=== PATIENT | female | born 1975 | race Caucasian/White ===

== ENCOUNTER 2017-04-28 19:05 | Emergency (ER) | payer OTHER ==
[~2017-04-28] VITALS: Ht 160 cm; Wt 65.8 kg
[~2017-04-28 19:05] MED LIST: CRESTOR5 MG PO; FLOMAX 0.4MG C0.4 MG PO; JOLESSA 30 MCG-1 TAB PO; LISINOPRIL-HYDR1 TA2 PO; LORTAB 5/500 501 TAB PO; PREDNISONE20 MG PO; SEASONIQUE1 TAB PO; SPIRONOLACTONE25 MG NG; XOPENEX HF0.045 MG/A IH; ZOFRAN4 MG PO; ZYRTEC 10MG TAB10 MG PO
--- OUTSIDE RECORDS SUMMARY | 2017-04-28 19:12 | External Medical Summary Rpt | CCD ---
Author Author , ASHLEE ROSADO Address Unknown Phone [email or web address] Providers Care Commercial Specialist Name Role Phone Ahsan Bravo MD, Unavailable Unavailable Ahsan Bravo MD Purpose Continuity of Care Document - 08-23-2012 through 2016 Problems Code Diagnosis DOS Provider Status [id number] Flank pain [facility] 288.8 Leukocytosi [facility] [id number] Kidney [facility] Allergies, Adverse Reactions, Alerts Type Drug Allergy Adverse Reaction to Substance Substance Reaction Severity Erythromycin I-RASH Intermediate Amoxicillin I-RASH Intermediate Metaxalone I-RASH Intermediate Clavulanic Acid I-RASH Intermediate Medications Na ND Rx Da Fi Fi Am Da Di Ph RX Ph St me C No te ll ll ou ys ag ar # ys at rm s nt no ma ic us Or Da si cy ia de te s n re d IP 00 03 0 No RA 48 -1 T- 70 0- Lo AL 20 20 ng BU 10 13 er T 1 0. Ac 5- ti 3( ve 2. 5) MG /3 ML Vital Signs 08-23-2012 14:52 Name Value Interpretat Reference Comment ion Range Body 98.2 [degF] Temperature BP 71 mm[Hg] Diastolic BP Systolic 129 mm[Hg] Heart 87 /min Rate/Pulse O2% 100 % Respiratory 16 /min Rate 08-23-2012 13:18 Name Value Interpretat Reference Comment ion Range BP 98 mm[Hg] Diastolic BP Systolic 141 mm[Hg] Heart 100 /min Rate/Pulse Respiratory 20 /min Rate 08-23-2012 12:21 Name Value Interpretat Reference Comment ion Range O2% 100 % Results Labs Lab Lab Date Result Refere Interp Status Commen Order Detail nces retati t Range on COMPREHENSIVE METABOLIC PANEL (08-23-2012 13:46) Glucose 98 74-106 complet 013 mg/dL ed Bld-mCn 13:46 c BUN 16 7-18 complet Bld-mCn 013 mg/dL ed c 13:46 Creat 1.0 0.6-1.0 complet SerPl-m 013 mg/dL ed Cnc 13:46 ESTIMAT 73 50-200 complet ED 013 ML/MIN ed CREATIN 13:46 INE CLEARAN CE GFR 62 59- complet (ESTIMA 013 ML/MIN ed DONN) 13:46 Sodium 140 136-145 complet SerPl-s 013 mmoL/L ed Cnc 13:46 Potassi 3.7 3.5-5.1 complet um 013 mmoL/L ed SerPl-s 13:46 Cnc Chlorid 104 98-107 complet e 013 mmoL/L ed SerPl-s 13:46 Cnc CO2 26 21.0-32 complet SerPl-s 013 mmoL/L .0 ed Cnc 13:46 Calcium 9.4 8.5-10. complet 013 mg/dL 1 ed SerPl-m 13:46 Cnc Prot 7.7 6.4-8.2 complet SerPl-m 013 gm/dL ed Cnc 13:46 Albumin 3.9 3.4-5.0 complet 013 gm/dL ed SerPl-m 13:46 Cnc Globuli 3.8 1.3-3.2 complet n 013 gm/dL ed Ser-mCn 13:46 c Albumin 1.0 UNK 1.1-1.8 complet /Glob 013 ed SerPl-m 13:46 Rto Bilirub 0.4 0.2-1.0 complet 013 mg/dL ed SerPl-m 13:46 Cnc AST 21 U/L 15-37 complet SerPl-c 013 ed Cnc 13:46 ALT 34 U/L 30-65 complet SerPl-c 013 ed Cnc 13:46 ALP 63 U/L 50-136 complet SerPl-c 013 ed Cnc 13:46 D Dimer PPP (08-23-2012 13:46) D Dimer 03-10-2 135 0-400 complet PPP 013 ng/mL ed 13:46 CBC with AUTO DIFF (08-23-2012 13:46) WBC # 03-10-2 11.6 4.8-10. complet Bld 013 K/MM3 8 ed Auto 13:46 RBC # 03-10-2 5.20 4.2-5.4 complet Bld 013 M/mm3 ed Auto 13:46 Hgb 03-10-2 15.5 12.2-16 complet Bld-mCn 013 g/dL .2 ed c 13:46 Hct Fr 03-10-2 45.0 % 37.0-47 complet Bld 013 .0 ed 13:46 MCV RBC 03-10-2 86.5 fl 82.2-97 complet 013 .8 ed 13:46 MCH RBC -10-2 29.8 pg 27-31.2 complet Qn 013 ed Auto 13:46 MEAN 03-10-2 34.5 31.8-35 complet CORPUSC 013 g/dl .4 ed ULAR 13:46 HGB CONC RDW RBC -10-2 12.8 % 11.5-17 complet Auto 013 .5 ed 13:46 Platele 03-10-2 274 142-424 complet t Bld 013 K/mm3 ed Ql 13:46 Manual MEAN -10-2 8.2 fl 7.4-10. complet PLATELE 013 4 ed T 13:46 VOLUME Granulo 03-10-2 70.7 % 37.0-80 complet cytes 013 .0 ed Fr Bld 13:46 Auto LYMPH % 03-10-2 23.7 % 10-50.0 complet 013 ed 13:46 Monocyt 03-10-2 4.5 % 1.7-9.3 complet es Fr 013 ed Bld 13:46 Auto Eosinop 03-10-2 0.8 % 0.1-12. complet hil Fr 013 0 ed Bld 13:46 Auto Basophi 03-10-2 0.4 % 0.1-2.0 complet ls Fr 013 ed Bld 13:46 Auto Granulo 03-10-2 8.2 1.8-7.8 complet cytes # 013 K/mm3 ed Bld 13:46 Auto Lymphoc 03-10-2 2.7 0.7-4.5 complet ytes Fr 013 K/mm3 ed Bld 13:46 Auto Monocyt 0.5 0.1-1.0 complet es # 013 K/mm3 ed Bld 13:46 Auto Eosinop 0.1 0.0-0.4 complet hil # 013 K/mm3 ed Bld 13:46 Auto Basophi 0.0 0-0.2 complet ls # 013 K/MM3 ed Bld 13:46 Auto Encounters Encounter Start End Date Code Location Performer Type Date Emergency MORELIA PARRA MD (ER) 3 13:09 3 14:57 [facility]
--- OUTSIDE RECORDS SUMMARY | 2017-04-28 19:12 | External Medical Summary Rpt | CCD ---
Author Author , ASHLEE ROSADO Address Unknown Phone [email or web address] Care Team Providers Care Property Management Coordinator Name Role Phone Ahsan Bravo MD, Unavailable Unavailable Ahsan Bravo MD Purpose Continuity of Care Document - 08-23-2012 through 2016 Problems Code Diagnosis DOS Provider Status [id number] Flank pain [facility] 288.8 Leukocytosi [facility] [id number] Kidney [facility] Allergies, Adverse Reactions, Alerts Type Drug Allergy [...] PARRA MD (ER) 3 13:09 3 14:57 [facility]
--- OUTSIDE RECORDS SUMMARY | 2017-04-28 19:13 | External Medical Summary Rpt | CCD ---
Author Author , JASON ROSADO Address Unknown Phone [email or web address] Immunization Name Date Rout CVX Reac Dose Comm Prov Is Faci e tion ent ider Refu lity Give sed n Hep 10-2 43 999 Hist H149 No H149 B, 1- oric adul 99 al t Info rmat ion - Sour ce Unsp ecif ied Hep 05- 43 999 Hist H149 No H149 B, 9- oric adul 99 al t Info rmat ion - Sour ce Unsp ecif ied Hep 04- 43 999 Hist H149 No H149 B, 3- oric adul 99 al t Info rmat ion - Sour ce Unsp ecif ied
--- OUTSIDE RECORDS SUMMARY | 2017-04-28 19:13 | External Medical Summary Rpt | CCD ---
Author Author , JASON ROSADO Address Unknown Phone [email or web address] Immunization Name Date Rout CVX Reac Dose [...]
--- NOTE | 2017-04-28 19:46 | Urgent Treatment Center Report ---
History of Present Issue Date/Time Seen by Provider 04/28/171942 Visit Reason Pt arrived:Walked Presenting Problem:PT C/O OF MIGRAINE FOR 2 DAYS Location if Accident: Onset of symptoms date/time:/ or onset unknown for:MEDICAL HX UNKNOWN Have you (or family members/close friends) recently traveled outside the [place]? N If Yes, where/when: Have you had exposure to infectious disease within the past month? TB? Other? Specify: Patient state that she has a history of migraine headaches State that she has had a migraine now for two day and her medication has not helped to control it State that her eyes are sensative to light and pain is on right side of head State that this migraine is simular to others she has had ALLERGIES Coded Allergies: amoxicillin (Mild, 06/27/15) erythromycin base (Mild, 06/27/15) metaxalone (From SKELAXIN) (Mild, 06/27/15) Home Medications Active Scripts Prednisone (Prednisone 20MG Tab) 20 MG PO BID #6 TAB Prov: 02/15/17 Reported Medications Spironolactone (Spironolactone) 25 MG NG BID Cetirizine Hcl (All Day Allergy) 10 MG PO DAILY LEVONORGESTREL-ETHIN ESTRADIOL (Jolessa 0.15 MG-0.03 MG Tablet) 1 TAB PO DAILY LISINOPRIL/HYDROCHLOROTHIAZIDE (Lisinopril-Hctz 20-25 MG Tab) 1 TAB PO DAILY History Medical History General CAD? No Angina: No [place]: No Hypertension? Yes Hyperlipidemia? Yes CHF? No DVT? No PE? No COPD? No Asthma? Yes Anemia? No GERD? No Gastric ulcers? No GI Bleed? No Hernia? No Thyroid Problems? No Hypothyroidism? No CVA? No Seizures? No Diabetes? No Renal Insuffiency? No UTI? No Stones? No BPH? No GB Disease: No Nephritic Syndrome? No Asplenia? No Hepatitis? No Sickle Cell Disease? No Arthritis? No Migraines? No Cataracts? No Glaucoma? No MRSA? No HIV? No TB? No Anxiety? No Depression? No Cancer? No Immunization HX DT/Tetanus UNKNOWN Flu REFUSES Pneumonia REFUSES Surgical Hx Previous Surgery?Y Tonsils ORAL SURGERY-WISDOM TEETH BACK SURGERY RN PICU Hx LMP 1 Month Ago Family History Family HX Diabetes Yes CAD No Hypertension Yes Hyperlipidemia Yes Cancer No TB No Social History Smoking Hx Smoker: Never Smoker Tobacco: No Alcohol Alcohol: No Review of Systems All Other Systems Reviewed and Negative Psychiatric/Neurological headache Physical Exam Vital Signs Vital Signs Date Time Temp Pulse Resp B/P Pulse O2 O2 Flow FiO2 Ox Delivery Rate 04/28 1954 18 04/28 1934 98.1 85 20 134/95 98 General Appearance normal appearance, WD/WN, no apparent distress Eye Exam - bilateral eye normal exam, bilateral eye PERRL, bilateral eye EOMI, bilateral eye other (sensative to light) Respiratory Status Yes: trachea midline, chest symmetrical, non tender chest. No: respiratory distress. Lung Sounds bilateral: normal breath sounds, lungs clear. Cardiovascular normal exam, regular rate/rhythm, no peripheral edema Neurologic alert, normal exam, oriented x 3 Medical Decision Making LABS/Meds/Orders Pt receiving controlled substance in ED? No Results/Orders Current Medication Orders Sig/Valentin Start time Last Medication Dose Route Stop Time Status Admin Metoclopramide HCl 0 .STK-MED ONE 04/28 1951 DC PO Diphenhydramine HCl 0 .STK-MED ONE 04/28 1949 DC .ROUTE Ketorolac 0 .STK-MED ONE 04/28 1949 DC Tromethamine .ROUTE Diphenhydramine HCl 25 MG ONCE ONE 04/28 1945 DC 04/28 IM 04/28 Ketorolac 60 MG ONCE ONE 04/28 1945 DC 04/28 Tromethamine IM 04/28 Metoclopramide HCl 10 MG ONCE ONE 04/28 1945 DC 04/28 PO 04/[address] [facility] Progress Notes Comment After medication patient states that pain is much improved state that eyes no longer sensative and pain is almost gone state that she is ready to go home and go to bed Departure Departure Time of Disposition 2018 Disposition DC Home or Self Care(routine) Clinical Impression Primary Impression: Migraine Qualifiers: Migraine type: unspecified Status migrainosus presence: without status migrainosus Intractability: intractable Qualified Code: G43.919 - Migraine, unspecified, intractable, without status migrainosus Condition STABLE Referrals Esther Martínez APRN (Family): Tomorrow-Call Office if symptoms return Patient Instructions DI for Migraine, Migraine -- Adult Additional Instructions Follow up with family doctor Return if needed Take medication as prescribed Over the counter Motrin and Tylenol as needed for pain If any changes with this migraine begans to occur, go straight to the ER Discharge Counseling Counseled pt/family regarding diagnosis, medications/RX, home care, follow up needs at 2020
[2017-04-28 20:31] VITALS: BP 132/88
[2017-04-29] MEDS ORDERED: TOPIRAMATE25 MG PO (16:50)
[2017-04-29] MEDS ORDERED: LASIX 20MG. TAB20 MG PO (20:34)
[2017-04-29] MEDS ORDERED: LEVOTHYROXIN0.025 MG PO (20:35)
== END 2017-04-28 20:33 | disposition home or self-care (01) ==
LOC: UTC 19:05
DX: G43.919 Migraine, unspecified, intractable, without status migrainosus (principal); I10 Essential (primary) hypertension; J45.909 Unspecified asthma, uncomplicated; Z88.1 Allergy status to other antibiotic agents; Z88.8 Allergy status to other drugs, medicaments and biological substances; Z91.048 Other nonmedicinal substance allergy status; Z79.3 Long term (current) use of hormonal contraceptives; Z79.899 Other long term (current) drug therapy

== ENCOUNTER 2017-04-29 16:40 | Observation (INO) | payer OTHER ==
[~2017-04-29] VITALS: Ht 160 cm; Wt 76.5 kg
[2017-04-29 16:42] VITALS: BP 139/90
[2017-04-29] MEDS ORDERED: TOPIRAMATE25 MG PO (16:50)
--- OUTSIDE RECORDS SUMMARY | 2017-04-29 16:59 | External Medical Summary Rpt | CCD ---
Author Author , ASHLEE ROSADO Address Unknown Phone [email or web address] Team Providers Care Automobiles Salesperson Name Role Phone Ahsan Bravo MD, Unavailable Unavailable Ahsan Bravo MD Purpose Continuity of Care Document - 08-23-2012 through 2016 Problems Code Diagnosis DOS Provider Status [id number] Flank pain [facility] 288.8 Leukocytosi [facility] [id number] Kidney [facility] J45.901 UNSPECIFIED ASTHMA WITH (ACUTE) EXACERBATIO N Allergies, Adverse Reactions, Alerts Type Drug Allergy [...] g/dL .2 ed c 13:46 Hct Fr -10-2 45.0 % 37.0-47 complet Bld 013 .0 ed 13:46 MCV RBC -10-2 86.5 fl 82.2-97 complet 013 .8 ed 13:46 MCH RBC -10-2 29.8 pg 27-31.2 complet Qn 013 ed Auto 13:46 MEAN 03-10-2 34.5 31.8-35 complet CORPUSC 013 g/dl .4 ed ULAR 13:46 HGB CONC RDW RBC -10-2 12.8 % 11.5-17 complet Auto 013 .5 ed 13:46 Platele -10-2 274 142-424 complet t Bld 013 K/mm3 ed Ql 13:46 Manual MEAN 10-2 8.2 fl 7.4-10. complet PLATELE 013 4 ed T 13:46 VOLUME Granulo -10-2 70.7 % 37.0-80 complet cytes 013 .0 [...] 013 K/mm3 ed Bld 13:46 Auto Monocyt 08-23-2 0.5 0.1-1.0 complet es # 013 K/mm3 ed Bld 13:46 Auto Eosinop 0.1 0.0-0.4 complet hil # 013 K/mm3 ed Bld 13:46 Auto Basophi 0.0 0-0.2 complet ls # 013 K/MM3 ed Bld 13:46 Auto Encounters Encounter Start End Date Code Location Performer Type Date Emergency MORELIA PARRA MD (ER) 3 13:09 3 14:57 [facility]
--- OUTSIDE RECORDS SUMMARY | 2017-04-29 16:59 | External Medical Summary Rpt | CCD ---
Author Author , JASON ROSADO Address Unknown Phone [email or web address] Immunization Name Date Rout CVX Reac Dose [...]
--- OUTSIDE RECORDS SUMMARY | 2017-04-29 16:59 | External Medical Summary Rpt | CCD ---
Author Author , ASHLEE ROSADO Address Unknown Phone [email or web address] Team Providers Care Systems Spec Name Role Phone Ashan Bravo MD, Unavailable Unavailable Ahsan Bravo MD Purpose Continuity of Care Document - 08-23-2012 through 2016 Problems Code Diagnosis DOS Provider Status [id number] Flank pain [facility] 288.8 Leukocytosi [facility] [id number] Kidney [facility] J45.901 UNSPECIFIED ASTHMA WITH (ACUTE) EXACERBATIO [...] PARRA MD (ER) 3 13:09 3 14:57 [facility]
--- OUTSIDE RECORDS SUMMARY | 2017-04-29 16:59 | External Medical Summary Rpt | CCD ---
Author Author , JASON ROSADO Address Unknown Phone [email or web address] Immunization Name Date Rout CVX Reac Dose [...]
[2017-04-29 17:01] LABS: HEMOGLOBIN 14.3 g/dL (12.2-16.2); LYMPH # 5.6 K/mm3 (0.7-4.5); LYMPH % 29.7 % (10-50.0)
--- NOTE | 2017-04-29 17:04 | Emergency Room Report ---
History of Present Illness Time Seen by [id number] Presenting Problem in Triage Pt arrived:Ambulance Stretcher Presenting Problem:SYNCOPE Onset of symptoms date/time:04/29/17 or onset unknown for: Treatment Prior to Arrival: ANTENNA DESIGN ENGINEER Provided by: Sepsis Risk Assessment: Temp: 98.4 B/P: 139/90 MAP: 106 Pulse: 78 Resp: 18 Recent fever? N Clinical Suspician of Infection? N Mental Status: 1 - Regular (Normal Baseline) Sepsis Risk:Low Sepsis Risk Have you (or family members/close friends) recently traveled outside the [place]? N If Yes, where/when: Have you had exposure to infectious disease within the past month? N TB? Other? Specify: 41 years old white female has been suffering from migraine for 4 days. She was seen in urgent care center where she was given an injection of Reglan. A she became dizzy and diaphoretic and collapsed. EMS was contacted and the patient was placed on a board and brought to the ED. She complains of pain in her heads and chronic lower back pain. She denies having chest pain palpitations shortness of breath. Source patient, RN notes reviewed, family Exam Limitations clinical condition ALLERGIES Coded Allergies: amoxicillin (Mild, 06/27/15) erythromycin base (Mild, 06/27/15) metaxalone (From SKELAXIN) (Mild, 06/27/15) Home Medications Reported Medications Spironolactone (Spironolactone) 25 MG NG BID Topiramate 100 MG PO BID #60 Cetirizine Hcl (All Day Allergy) 10 MG PO DAILY LEVONORGESTREL-ETHIN ESTRADIOL (Jolessa 0.15 MG-0.03 MG Tablet) 1 TAB PO DAILY LISINOPRIL/HYDROCHLOROTHIAZIDE (Lisinopril-Hctz 20-25 MG Tab) 1 TAB PO DAILY History Medical History General CAD? No Angina: No [place]: No Hypertension? Yes Hyperlipidemia? Yes CHF? No DVT? No PE? No COPD? No Asthma? Yes Anemia? No GERD? No Gastric ulcers? No GI Bleed? No Hernia? No Thyroid Problems? No Hypothyroidism? No CVA? No Seizures? No Diabetes? No Renal Insuffiency? No End Stage Renal Disease? No UTI? No Stones? No BPH? No GB Disease: No Nephritic Syndrome? No Asplenia? No Hepatitis? No Sickle Cell Disease? No Arthritis? No Migraines? No Cataracts? No Glaucoma? No MRSA? No HIV? No TB? No Anxiety? No Depression? No Cancer? No Immunization Hx DT/Tetanus UNKNOWN Flu REFUSES Pneumonia REFUSES Surgical Hx Previous Surgery?Y Tonsils ORAL SURGERY-WISDOM TEETH BACK SURGERY VEHICLE WASHER Hx LMP 2 Months Ago Family History Family Hx Diabetes Yes CAD No Hypertension Yes Hyperlipidemia Yes Cancer No TB No Social History Smoking Hx Smoker: Never Smoker Tobacco: No Alcohol Alcohol: No Review of Systems All Other Systems Reviewed and Negative Constitutional see HPI, diaphoresis Eyes no symptoms reported ENT no symptoms reported. Respiratory no symptoms reported Cardiovascular no symptoms reported Gastrointestinal see HPI, nausea, vomiting Genitourinary no symptoms reported. Musculoskeletal no symptoms reported Skin no symptoms reported Psychiatric/Neurological no symptoms reported, see HPI, headache Physical Exam Vital Signs Vital Signs Date Time Temp Pulse Resp B/P Pulse O2 O2 Flow FiO2 Ox Delivery Rate 04/29 1758 83 18 144/86 98 04/29 1642 98.4 78 18 139/90 99 - WBC >12,000 or <4,000 or 10% bands? 2 or more SIRS Criteria Met? B/P:139/90 MAP:106 Creatinine >2.0? UA output<0.5ml/kg/hr for 2 hrs? Platelet count >100,000? Lactate >2.0mmol/1? INR >1.2 or PTT > than 60 sec? Evidence of Organ Dysfunction? Provider documented clinical suspician of infection? N Sepsis Criteria Count: 0 Sepsis Risk: Low Sepsis Risk General Appearance normal appearance, WD/WN Eye Exam - bilateral eye normal exam, bilateral eye PERRL, bilateral eye EOMI Ear, Nose, Throat hearing grossly normal, normal ENT inspection Neck normal inspection, non-tender, supple, full range of motion, no cervical spine tenderness Respiratory Status Yes: trachea midline, chest symmetrical, non tender chest. No: respiratory distress. Lung Sounds bilateral: normal breath sounds, lungs clear. Cardiovascular normal exam, regular rate/rhythm, no peripheral edema, no gallop, no JVD, no murmur, no rub, normal peripheral pulses Peripheral Pulses Pulses normal Yes Gastrointestinal normal bowel sounds, normal exam, non tender, soft, no organomegaly Back normal inspection, no CVA tenderness, no vertebral tenderness, vertebral tenderness, chronic lumbar vertebral tenderness per the Patient Extremities non-tender, normal range of motion, normal inspection Strength 5 Upper Ext (L), 5 Upper Ext (R), 5 Lower Ext (L), 5 Lower Ext (R) Neurologic alert, reed worker II-XII nml as tested, normal exam, no motor/sensory deficits, oriented x 3 Reflexes Reflexes normal Yes Mental status normal mood/affect Comments The patient T shirt was covered in vomitus Medical Decision Making LABS/Meds/Orders Pt receiving controlled substance in ED? No Results/Orders Laboratory Tests 04/29/17 1630: Sodium 140, Potassium 2.8 *L, Chloride 103, Carbon Dioxide 23, BUN 17, Creatinine 1.5 H, Estimated Creat Clear 50, Estimated GFR (MDRD) 38 L, Glucose 143 H, Calcium 8.8, Total Bilirubin 0.3, AST 15, ALT 19, Alkaline Phosphatase 64, Total Protein 7.5, Albumin 3.9, Globulin 3.6 H, Albumin/Globulin Ratio 1.1, WBC 19.0 H, RBC 4.92, Hgb 14.3, Hct 43.1, MCV 87.7, RDW 12.7, Plt Count 390, MPV 9.0, Gran % 64.2, Gran # 12.2 H, Total Counted 100, Lymphocytes % 29.7, Monocytes % 4.3, Eosinophils % 1.2, Basophils % 0.5, Neutrophils 70, Band Neutrophils 2, Lymphocytes (Manual) 22, Lymphocytes # 5.6 H, Monocytes (Manual) 3, Monocytes # 0.8, Eosinophils # 0.2, Eosinophils # (Manual) 1, Basophils # 0.1 , Atypical Lymphocytes 2, Platelet Estimate NORMAL, PUBS MCHC 33.1, MCH 29.0, Salicylates 1.2 L, Acetaminophen 0 L, Alcohols 0 Current Medication Orders Sig/Valentin Start time Last Medication Dose Route Stop Time Status Admin Ondansetron HCl 4 MG ONCE ONE 04/29 1800 DC 04/29 IV 04/29 180 1758 Potassium Chloride 40 MEQ ONCE ONE 04/29 1800 DC PO 04/29 180 Sodium Chloride 1,000 ML .Q1H1M 04/29 1800 AC 04/29 IV 04/29 1900 1759 Sodium Chloride 10 ML PRN PRN 04/29 1800 AC IV 04/30 175 Ondansetron HCl 0 .STK-MED ONE 04/29 1751 DC .ROUTE Sodium Chloride 1,000 ML .STK-MED ONE 11/14 1751 DC IV Sodium Chloride 10 ML PRN PRN 04/29 1745 AC IV 04/30 1737 Orders Procedure Date/time Status DIET-NOTHING BY MOUTH 04/30 B Active DIET-NOTHING BY MOUTH 04/29 D Complete IV SALINE LOCK 04/[address] SCAN REQ 04/29 1706 Complete ABD ACUTE(MUL VIEWS) 04/29 1706 Active URINALYSIS/COMPLETE 04/29 1706 Active SALICYLATE 04/29 1706 Complete URINE 04/29 1706 Active DRUG ABUSE SCREEN (10) 04/29 1706 Active ALCOHOL 04/29 1706 Complete Acetaminophen 04/[address] CERVICAL SPINE W/O CONT. 04/[address] HEAD W/O CONTRAST 04/[address] HEAD REQ 04/29 1654 Complete CBC WITH AUTO DIFF 04/29 1654 Complete CHEM 12 PROFILE 04/29 1654 Complete DIFFERENTIAL-WBC 04/29 1630 Complete Departure Departure Time of Disposition 1830 Disposition Still a Patient Clinical Impression Primary Impression: Syncope and collapse Condition STABLE Referrals Feroz Ross MD (Family) Additional Instructions discussed with Dr Ross who accepted to admit for observation. Discharge Counseling Counseled pt/family regarding diagnosis, test results, medications/RX, home care ED Critical Care Critical Care No If Critical Care minutes are documented, the time involved in the performance of seperately reportable procedures was not counted toward critical care time documented. I directly delivered medical care to this critically ill and/or injured patient. Timely evaluation and treatment was necessary to address the significant organ system(s) dysfunction present in this patient. at 1831
[2017-04-29 17:35] LABS: NEUTROPHILS 70 % (42-76)
--- OUTSIDE RECORDS SUMMARY | 2017-04-29 18:53 | External Medical Summary Rpt | CCD ---
Author Author , JASON ROSADO Address Unknown Phone [email or web address] Immunization Name Date Rout CVX Reac Dose [...]
--- OUTSIDE RECORDS SUMMARY | 2017-04-29 18:53 | External Medical Summary Rpt | CCD ---
Author Author , JASON ROSADO Address Unknown Phone [email or web address] Immunization Name Date Rout CVX Reac Dose [...]
--- OUTSIDE RECORDS SUMMARY | 2017-04-29 18:53 | External Medical Summary Rpt | CCD ---
Author Author , ASHLEE ROSADO Address Unknown Phone [email or web address] Providers Care Securities Analyst Name Role Phone Ahsan Bravo MD, Unavailable Unavailable Ahsan Bravo MD Purpose Continuity of Care Document - 08-23-2012 through 2016 Problems Code Diagnosis DOS Provider Status [id number] Flank pain [facility] 288.8 Leukocytosi [facility] [id number] Kidney [facility] Allergies, Adverse Reactions, Alerts Type Drug Allergy [...] PARRA MD (ER) 3 13:09 3 14:57 [facility]
--- OUTSIDE RECORDS SUMMARY | 2017-04-29 18:53 | External Medical Summary Rpt | CCD ---
Author Author , ASHLEE ROSADO Address Unknown Phone [email or web address] Team Providers Care Production Control Coordinating Clerk Name Role Phone Ahsan Bravo MD, Unavailable Unavailable Ahsan Bravo MD Purpose Continuity of Care Document - 08-23-2012 through 2016 Problems Code Diagnosis DOS Provider Status [id number] Flank pain [facility] 288.8 Leukocytosi [facility] [id number] Kidney [facility] Allergies, Adverse Reactions, Alerts Type Drug [...] PARRA MD (ER) 3 13:09 3 14:57 [facility]
[2017-04-29 20:20] VITALS: BP 138/87
[2017-04-29] MEDS ORDERED: LASIX 20MG. TAB20 MG PO (20:34)
[2017-04-29] MEDS ORDERED: LEVOTHYROXIN0.025 MG PO (20:35)
[2017-04-29 20:45] VITALS: BP 142/79
--- NOTE | 2017-04-29 23:09 | PHARMACY CLINIC NOTE ---
Patient Demographics Patient Demographics Admission date: 04/29/17 Date: 04/29/17 Time: 2308 Allergies Coded Allergies: amoxicillin (Mild, 06/27/15) erythromycin base (Mild, 06/27/15) metaxalone (From SKELAXIN) (Mild, 06/27/15) HEIGHT- FT: 5 IN: 3.00 K.459 VTE General Information Labs: Laboratory Tests 04/29 1630 Hematology Hgb (12.2 - 16.2 g/dL) 14.3 Hct (37.0 - 47.0 %) 43.1 Plt Count (142 - 424 K/mm3) 390 Disclaimer The following section includes nursing documentation that has been pulled in for pharmacy review. Patient's VTE score: 4 Patient's VTE Risk: LOW RISK Clinical trial participant? No VTE prophylaxis NQF [id number] VTE prophylaxis ordered? Yes Type of prophylaxis/treatment: DONN at 2309
--- NOTE | 2017-04-29 23:21 | RADIOLOGY REPORT PS360 ---
CT HEAD W/O CONTRAST HISTORY: Syncope and collapse, head injury with pain SYNCOPE ORDERING PHYSICIAN: Feroz Ross MD PATIENT AGE: 41 years COMPARISON: None TECHNIQUE: Axial images obtained without contrast. Brain and bone windows reviewed. FINDINGS: No midline shift, mass effect, intracranial hemorrhage, hydrocephalus, or extra-axial fluid collection is evident. The calvarium has an unremarkable appearance. No mastoid effusion. The visualized paranasal sinuses are unremarkable. IMPRESSION: Negative CT head without contrast. No acute finding.
--- NOTE | 2017-04-29 23:22 | RADIOLOGY REPORT PS360 ---
ABD ACUTE(MUL VIEWS) HISTORY: vomiting ORDERING PHYSICIAN: Feroz Ross MD PATIENT AGE: 41 years COMPARISON: None FINDINGS: The chest shows no acute finding. Upright and supine views of the abdomen shows a nonspecific bowel gas pattern with nondistended gas-filled loops small and large bowel. No intestinal obstruction or free air. No urolithiasis or acute bony anomalies. IMPRESSION: Nonspecific nonacute findings
[2017-04-30] MEDS ORDERED: LOSARTAN POTAS100 MG PO (03:31)
[2017-04-30] MEDS ORDERED: SEASONIQUE1 TAB PO (03:33)
[2017-04-30 04:30] VITALS: BP 126/82
[2017-04-30 07:20] LABS: LYMPH % 10.2 % (10-50.0)
[2017-04-30 07:28] LABS: HEMOGLOBIN 12.2 g/dL (12.2-16.2)
[2017-04-30 08:00] VITALS: BP 119/75
[2017-04-30] MEDS ORDERED: REGLAN10 M2 PO (08:09)
--- NOTE | 2017-04-30 08:09 | Discharge Summary Standard ---
Demographics: Admit date: 04/29/17 Chief complaint: Syncope PRIMARY DIAGNOSIS: vasovagal syncope Allergies: Coded Allergies: amoxicillin (From AUGMENTIN) (Mild, 04/30/17) erythromycin base (Mild, 06/27/15) metaxalone (From SKELAXIN) (Mild, 06/27/15) History of present illness: History of present illness: 41-year-old female with history of migraine headaches presented to the emergency department yesterday after a syncopal event at her place of employment. Patient reports a 5 day history of intermittent migraines for which she was seen in the office once, urgent treatment clinic once. Patient was given abortive medicines to treat her acute migraines which would help intermittently. On the day of admission the patient was at work when she felt headache, became nauseous and pale appearing. When she felt the urge to vomit she tried to make it to the bathroom and began vomiting and then lost consciousness. Patient describes headaches as occurring on the RIGHT side of her head and having a tingling sensation in the temporoparietal area. If headache is not treatable worsened and become a piercing sensation behind the LEFT eye. Patient has risen tripped and which she uses sparingly due to side effects. She takes Fioricet at least every other day for some type of headache. She is on Topamax 50 mg twice a day as well. Past medical history: Family HX Family Hx Insignificant No Diabetes Yes CAD No Hypertension Yes Hyperlipidemia Yes Cancer No TB No Immunization HX DT/Tetanus UNKNOWN Flu REFUSES Pneumonia REFUSES TB Test in last year No General CAD? No Angina: No [place]: No Hypertension? Yes Hyperlipidemia? Yes CHF? No DVT? No PE? No COPD? No Asthma? Yes Anemia? No GERD? No Gastric ulcers? No GI Bleed? No Hernia? No Thyroid Problems? No Hypothyroidism? No CVA? No Seizures? No Diabetes? No Renal Insuffiency? No UTI? No Stones? No BPH? No GB Disease: No Nephritic Syndrome? No Asplenia? No Hepatitis? No Sickle Cell Disease? No Arthritis? No Migraines? No Cataracts? No Glaucoma? No MRSA? No HIV? No TB? No Anxiety? No Depression? No Cancer? No Past Surgical HX Previous Surgery?Y Tonsils ORAL SURGERY-WISDOM TEETH BACK SURGERY Current home meds: Reported Medications Furosemide (Lasix 20MG) 20 MG PO BID Levothyroxine Sodium (Levothyroxine) 0.025 MG PO DAILY Losartan Potassium (Losartan 100MG) 100 MG PO DAILY L-NORGEST/E.ESTRADION-E.ESTRAD (Seasonique 0.15-0.03-0.01 Tab) 1 TAB PO DAILY Spironolactone (Spironolactone) 25 MG NG BID Topiramate 100 MG PO BID #60 Cetirizine Hcl (All Day Allergy) 10 MG PO DAILY Social Hx: Smoking HX Tobacco No Are you/the child exposed to second-hand smoke: No Alcohol Alcohol: No Hx of Drug Use Drug Use? No Review of systems: Constitutional No: chills, diaphoresis, fever. Respiratory no symptoms reported. Cardiovascular no symptoms reported Gastrointestinal/Abdominal see HPI Genitourinary no symptoms reported. Musculoskeletal no symptoms reported. Neurological Yes: headache, tingling. Exam: Lab data for last 24 hours: Laboratory Tests 04/30/17 0607: Sodium 138, Potassium 3.8, Chloride 109 H, Carbon Dioxide 21 L, BUN 13, Creatinine 1.0, Estimated Creat Clear 88, Estimated GFR (MDRD) 61, Glucose 105, Calcium 8.0 L, WBC 9.8, RBC 4.09 L, Hgb 12.2, Hct 36.4 L, MCV 88.9, RDW 12.5, Plt Count 230, MPV 8.6, Gran % 84.9 H, Gran # 8.3 H, Lymphocytes % 10.2, Monocytes % 3.7, Eosinophils % 0.9, Basophils % 0.2, Lymphocytes # 1.0, Monocytes # 0.4, Eosinophils # 0.1, Basophils # 0.0, PUBS MCHC 33.3, MCH 29.6 04/29/17 1630: Sodium 140, Potassium 2.8 *L, Chloride 103, Carbon Dioxide 23, BUN 17, Creatinine 1.5 H, Estimated Creat Clear 50, Estimated GFR (MDRD) 38 L, Glucose 143 H, Calcium 8.8, Total Bilirubin 0.3, AST 15, ALT 19, Alkaline Phosphatase 64, Total Protein 7.5, Albumin 3.9, Globulin 3.6 H, Albumin/Globulin Ratio 1.1, WBC 19.0 H, RBC 4.92, Hgb 14.3, Hct 43.1, MCV 87.7, RDW 12.7, Plt Count 390, MPV 9.0, Gran % 64.2, Gran # 12.2 H, Total Counted 100, Lymphocytes % 29.7, Monocytes % 4.3, Eosinophils % 1.2, Basophils % 0.5, Neutrophils 70, Band Neutrophils 2, Lymphocytes (Manual) 22, Lymphocytes # 5.6 H, Monocytes (Manual) 3, Monocytes # 0.8, Eosinophils # 0.2, Eosinophils # (Manual) 1, Basophils # 0.1 , Atypical Lymphocytes 2, Platelet Estimate NORMAL, PUBS MCHC 33.1, MCH 29.0, Salicylates 1.2 L, Acetaminophen 0 L, Alcohols 0 Admission vital signs: 1ST Vital Signs Result Date Time Pulse Ox 99 04/29 1642 B/P 139/90 04/29 1642 Temp 98.4 04/29 1642 Pulse 78 04/29 1642 Resp 18 04/29 1642 O2 Delivery ROOM AIR 04/29 2020 Exam General appearance: normal appearance, alert, awake Eyes: normal exam, anicteric ENT: normal exam, mucous membranes moist Neck: normal inspection, non-tender, no carotid bruit, no JVD Cardiovascular: normal exam Respiratory: normal exam, clear to auscultation Extremities: normal exam Musculoskeletal: normal exam Skin: normal exam, intact, normal color Neuro: normal exam, alert, no deficit Hospital Course Hospital Course: Patient was admitted for observation due to her syncope. Telemetry monitoring did not reveal any arrhythmias. Patient's headache actually resolved in the emergency department although the following morning (April 30) patient had a small headache that was treated with Reglan successfully. Patient will be discharged home. She will follow-up in the office in 1-2 weeks. She will continue Topamax. Reglan will be added to her regimen and she will try to wean herself from using Fioricet. She will also keep headache diary. Medications Medications: Discharge meds are as noted. Follow up Follow up in office in: 2 WEEKS with: Esther Martínez APRN at [phone]
[2017-04-30 09:03] VITALS: BP 119/75
--- NOTE | 2017-05-02 12:00 | RADIOLOGY REPORT PS360 ---
CT CERVICAL SPINE W/O CONT INDICATION: Neck pain, fall, neck sprain or strain of the cervical ligaments SYNCOPE, FALL ORDERING PHYSICIAN: Feroz Ross MD PATIENT AGE: 41 years COMPARISON: None TECHNIQUE: Axial images are obtained without contrast. Sagittal and coronal reformatted images are reviewed as well. FINDINGS: There is normal alignment. No acute fracture or dislocation is evident. There is mild degenerative disc disease at C4-C5 and C5-C6 with minimal endplate hypertrophic changes no canal stenosis. Lung apices are clear. There are slight reversal of the cervical lordosis which may be due to patient positioning or muscle spasm. IMPRESSION: 1. No acute fracture. 2. Straightening of cervical lordosis. 3. Cervical spondylosis
== END 2017-04-30 09:10 | disposition home or self-care (01) ==
LOC: ER 16:40 → 2ND 18:48 → ER 18:48 → 2ND 18:48
PROVIDERS: Emergency Medicine
DX: R55 Syncope and collapse (principal); I10 Essential (primary) hypertension; J45.909 Unspecified asthma, uncomplicated; G43.909 Migraine, unspecified, not intractable, without status migrainosus; Z79.3 Long term (current) use of hormonal contraceptives; Z88.1 Allergy status to other antibiotic agents; Z88.3 Allergy status to other anti-infective agents; Z88.8 Allergy status to other drugs, medicaments and biological substances; Z83.3 Family history of diabetes mellitus; Z82.49 Family history of ischemic heart disease and other diseases of the circulatory system; Z83.49 Family history of other endocrine, nutritional and metabolic diseases; Z79.899 Other long term (current) drug therapy
CPT/HCPCS: G0378; J2405